=== PATIENT | male | born 1950 | race Hispanic/Latino ===

== ENCOUNTER 2019-01-23 08:51 | Emergency (ER) | payer SELFPAY ==
[~2019-01-23] VITALS: Ht 167.6 cm; Wt 74.4 kg
[2019-01-23] MEDS ORDERED: NIFEDIPINE 10 MG CAP PO NR (09:00)
[2019-01-23] MEDS ORDERED: SODIUM CHLORIDE 0.9% 1000ML 1,000 ML IV STA (09:00)
[2019-01-23 09:43] LABS: BASOPHILS % 0.3 % (0.0-1.0); EOSINOPHILS # (AUTO) 0.1 (0.0-0.4); EOSINOPHILS % 1.1 % (0.0-6.0); HEMATOCRIT 47.8 % (38.2-49.6); HEMOGLOBIN 16.5 g/dL (14.0-18.0); LYMPHOCYTES # (AUTO) 0.9 (1.0-3.2); MEAN CORPUSCULAR HEMOGLOBIN 32.5 pg (28-32); MEAN CORPUSCULAR HGB CONC 34.5 g/dL (31-35); MEAN CORPUSCULAR VOLUME 94.3 fL (81-99); MONOCYTES # (AUTO) 0.7 (0.2-0.8); MONOCYTES % 10.7 % (4.4-11.3); NEUTROPHILS # (AUTO) 4.5 (2.1-6.9); NEUTROPHILS % 72.6 % (38.7-80.0); PLATELET COUNT 288 x10e3/uL (140-360); RED BLOOD COUNT 5.07 x10e6/uL (4.3-5.7); RED CELL DISTRIBUTION WIDTH 11.9 % (11.7-14.4)
[2019-01-23 09:47] LABS: INR 0.94; PROTHROMBIN TIME 13.1 seconds (11.9-14.5)
[2019-01-23 09:48] LABS: PARTIAL THROMBOPLASTIN TIME 30.5 seconds (23.8-35.5)
[2019-01-23 09:58] LABS: ALANINE AMINOTRANSFERASE 17 IU/L (0-55); ALBUMIN 3.3 g/dL (3.5-5.0); ALBUMIN/GLOBULIN RATIO 0.9 (0.8-2.0); ALKALINE PHOSPHATASE 108 IU/L (40-150); ANION GAP 12.2 mmol/L (8-16); BLOOD UREA NITROGEN 15 mg/dL (7-26); BUN/CREATININE RATIO 15 (6-25); CALCIUM 8.9 mg/dL (8.4-10.2); CARBON DIOXIDE 25 mmol/L (22-29); CHLORIDE 101 mmol/L (98-107); EST GLOMERULAR FILTRATION RATE > 60 ML/MIN (60-); GLUCOSE 106 mg/dL (74-118); POTASSIUM 4.2 mmol/L (3.5-5.1); SODIUM 134 mmol/L (136-145)
--- NOTE | 2019-01-23 10:00 | Diagnostic Imaging Report ---
EXAM: CHEST SINGLE (PORTABLE) DATE: 01/23/2019 9:00 AM INDICATION: Infection, hypertension COMPARISON: None FINDINGS: Lines and tubes: None Mild enlargement of the cardiac silhouette. Tortuous aorta. No focal pulmonary opacity, pleural effusion or pneumothorax. Upper abdomen unremarkable. No acute bony abnormality. IMPRESSION: Mild cardiomegaly. No evidence for acute disease. Signed by: Dr. Geremias Jovel M.D. on 01/23/2019 9:57 AM
--- NOTE | 2019-01-23 10:02 | Diagnostic Imaging Report ---
EXAM: LOWER LEG LEFT DATE: 01/23/2019 9:00 AM INDICATION: Infection COMPARISON: None FINDINGS: 2 views of the left tibia and fibula shows no displaced fracture or dislocation. No destructive bony lesion is seen. Soft tissues unremarkable. IMPRESSION: No acute bony abnormality. Signed by: Dr. Geremias Jovel M.D. on 01/23/2019 9:58 AM
[2019-01-23] MEDS ORDERED: CLINDAMYCIN PHOS 900MG/ 50ML 50 ML IV STA (11:14)
[2019-01-23 11:48] LABS: BILIRUBIN,URINE NEGATIVE (NEGATIVE); CLARITY,URINE CLEAR (CLEAR); COLOR,URINE YELLOW (YELLOW); KETONES,URINE NEGATIVE (NEGATIVE); LEUKOCYTE ESTERASE ,URINE NEGATIVE (NEGATIVE); NITRITE,URINE NEGATIVE (NEGATIVE); PROTEIN,URINE DIPSTICK 1+ (NEGATIVE); URINE UROBILINOGEN 0.2 mg/dL (0.2 - 1)
[2019-01-23 12:00] VITALS: BP 171/99
[2019-01-23 12:13] LABS: MUCUS,URINE MODERATE (RARE)
[2019-01-23 12:14] LABS: EPITHELIAL CELLS,URINE RARE /LPF; WBC,URINE (MAN) 0-5 /HPF (0-5)
== END 2019-01-23 12:21 | disposition home or self-care (01) ==
LOC: ER 08:51
DX: L03.116 Cellulitis of left lower limb (principal); S80.812A Abrasion, left lower leg, initial encounter; W01.0XXA Fall on same level from slipping, tripping and stumbling without subsequent striking against object, initial encounter; Y92.008 Other place in unspecified non-institutional (private) residence as the place of occurrence of the external cause; I10 Essential (primary) hypertension
CPT/HCPCS: 36415; 71045; 73590; 80053; 81001; 85025; 85610; 85730; 93005; 99284; J7030

== ENCOUNTER 2019-02-06 10:31 | Outpatient (RCR) | payer MEDICARE, SELFPAY ==
[~2019-02-06 10:31] MED LIST: LIDOCAINE/PRILOCAINE 2.5-2.5% KIT ONE; MINERAL OIL/PETROLAT/GLYCERI 6OZ BTL ONE; MUPIROCIN 2% OINT 22 GM TUBE ONE
[2019-02-06] MEDS ORDERED: MINERAL OIL/PETROLAT/GLYCERI 6OZ BTL ONE (12:53)
[2019-02-06] MEDS ORDERED: FLUOCINONIDE 0.05% 1 EA/15 GM TUBE ONE (12:53)
[2019-02-06] MEDS ORDERED: LIDOCAINE/PRILOCAINE 2.5-2.5% KIT ONE (12:53)
== END 2019-02-09 | disposition still patient (30) ==
LOC: WCC 10:31
PROVIDERS: ATTEND Family Medicine Adult Medicine
DX: S81.802A Unspecified open wound, left lower leg, initial encounter (principal); L03.116 Cellulitis of left lower limb; R60.9 Edema, unspecified; I87.2 Venous insufficiency (chronic) (peripheral); I10 Essential (primary) hypertension; W18.49XA Other slipping, tripping and stumbling without falling, initial encounter
CPT/HCPCS: 87071; 87075; 87186; 87205

== ENCOUNTER → 2019-02-14 | Outpatient (CLI) | payer SELFPAY | LOC: EDSEX → WCC 09:00 | PROVIDERS: ATTEND Family Medicine Adult Medicine | DX: S81.802A Unspecified open wound, left lower leg, initial encounter (principal); R60.9 Edema, unspecified; W18.49XA Other slipping, tripping and stumbling without falling, initial encounter; L03.116 Cellulitis of left lower limb; I87.2 Venous insufficiency (chronic) (peripheral); I10 Essential (primary) hypertension ==

== ENCOUNTER → 2019-02-21 | Outpatient (CLI) | payer SELFPAY | LOC: WCC 11:36 | PROVIDERS: ATTEND Family Medicine Adult Medicine | DX: S81.802A Unspecified open wound, left lower leg, initial encounter (principal); L03.116 Cellulitis of left lower limb; I87.2 Venous insufficiency (chronic) (peripheral); R60.9 Edema, unspecified; I10 Essential (primary) hypertension; W18.49XA Other slipping, tripping and stumbling without falling, initial encounter ==

== ENCOUNTER → 2019-02-25 | Outpatient (CLI) | payer SELFPAY | LOC: WCC 14:19 | PROVIDERS: ATTEND Family Medicine Adult Medicine | DX: S81.802A Unspecified open wound, left lower leg, initial encounter (principal); L03.116 Cellulitis of left lower limb; I87.2 Venous insufficiency (chronic) (peripheral); R60.9 Edema, unspecified; I10 Essential (primary) hypertension; W18.49XA Other slipping, tripping and stumbling without falling, initial encounter ==

== ENCOUNTER → 2019-03-04 | Outpatient (CLI) | payer SELFPAY | LOC: EDSEX → WCC 03-03 16:17 | PROVIDERS: ATTEND Family Medicine Adult Medicine | DX: S81.802A Unspecified open wound, left lower leg, initial encounter (principal); L03.116 Cellulitis of left lower limb; I87.2 Venous insufficiency (chronic) (peripheral); R60.9 Edema, unspecified; I10 Essential (primary) hypertension; W18.49XA Other slipping, tripping and stumbling without falling, initial encounter ==

== ENCOUNTER → 2019-03-11 | Outpatient (RCR) | payer MEDICARE, SELFPAY ==
[~2019-03-11] MED LIST changes: +LIDOCAINE VISC 2% SOLN 15 ML UDC ONE; -MUPIROCIN 2% OINT 22 GM TUBE ONE
== END ==
LOC: EDSEX → WCC 02-11 09:00
PROVIDERS: ATTEND Family Medicine Adult Medicine
DX: S81.802A Unspecified open wound, left lower leg, initial encounter (principal); L03.116 Cellulitis of left lower limb; R60.9 Edema, unspecified; I87.2 Venous insufficiency (chronic) (peripheral); I10 Essential (primary) hypertension; B96.89 Other specified bacterial agents as the cause of diseases classified elsewhere; W18.49XA Other slipping, tripping and stumbling without falling, initial encounter